=== PATIENT | male | born 1950 | race Caucasian/White ===

== ENCOUNTER 2017-10-26 11:32 | Day surgery (SDC) | payer MEDICARE, OTHER ==
[2017-10-26] MEDS ORDERED: PROPOFOL 20 ML ×2 (14:07)
== END 2017-10-26 16:25 | disposition home or self-care (01) ==
LOC: GIL 11:32
DX: R19.5 Other fecal abnormalities (principal); K64.8 Other hemorrhoids; I10 Essential (primary) hypertension; E78.5 Hyperlipidemia, unspecified
CPT/HCPCS: 45380; 88305

== ENCOUNTER 2017-11-06 09:45 | Day surgery (SDC) | payer MEDICARE, OTHER ==
[2017-11-06] MEDS ORDERED: PROPOFOL 20 ML ×3 (10:26→11:54)
== END 2017-11-06 15:44 | disposition home or self-care (01) ==
LOC: GIL 09:45
DX: D12.6 Benign neoplasm of colon, unspecified (principal); K64.8 Other hemorrhoids; E78.5 Hyperlipidemia, unspecified; I10 Essential (primary) hypertension
CPT/HCPCS: 45380; 88305